=== PATIENT | female | born 1980 | race Caucasian/White ===

== ENCOUNTER 2017-06-08 11:58 | Observation (INO) | payer SELFPAY ==
[~2017-06-08] VITALS: Ht 160 cm; Wt 65.2 kg
--- NOTE | 2017-06-08 12:12 | NUR ---
PT TO ROOM FOR TREATMENT IN STABLE CONDITION
--- NOTE | 2017-06-08 12:43 | NUR ---
PT STATES SHE RAN OUT OF [employer] LAST WEEK. STATES SHES FROM [place] BUT CAME DOWN HERE WITH HER BOYFRIEND WHO HAD TO WORK IN [place]. PT ALSO STATES SHE HAS BEEN DRINKING 1/2 GALLON OF RUM EVERYDAY x10 YEARS BUT STOPPED DRINKING 2 DAYS AGO BC SHE DOESNT HAVE THE MONEY ANYMORE. PT C/O SEEING & HEARING THINGS THAT ARENT THERE. PT STATES SHE HAS HAD 2 SEIZURES IN HER SLEEP. DENIES PAIN, DENIES SOB. CARDIAC & RESP WNL. IV ESTABLISHED. LABS & UA COLLECTED. @ BEDSIDE.
[2017-06-08 13:07] LABS: HEMATOCRIT 46.5 % (37.0-47.0); HEMOGLOBIN 16.5 g/dl (12.0-16.0); IMMATURE GRANULOCYTES 0.3 % (0.0-1.0); MEAN CELL VOLUME 93.4 fL CALC (80.0-100.0); MEAN CORPUSCULAR HGB 33.1 pG CALC (26.0-32.0); MEAN CORPUSCULAR HGB CONC 35.5 g/L CALC (32.0-36.0); NEUT# 3.71 thou/uL (2.00-7.15); RED BLOOD COUNT 4.98 mill/uL (4.20-5.60); RED CELL DISTRI WIDTH 13.6 % (11.5-15.5)
[2017-06-08 13:19] LABS: URINE BLOOD DIPSTICK NEGATIVE (NEGATIVE); URINE GLUCOSE - DIPSTICK NEGATIVE (NEGATIVE); URINE KETONE 15 mg/dL (NEGATIVE); URINE LEUK ESTERASE NEGATIVE (NEGATIVE); URINE NITRITE - DIPSTICK NEGATIVE (Negative); URINE PH 5.5 (4.5-8.0); URINE PROTEIN - DIPSTICK 100 mg/dL (NEG-TRACE); URINE SPECIFIC GRAVITY >=1.030
[2017-06-08 13:20] LABS: ALBUMIN 5.3 g/dL (3.2-5.0); ALKALINE PHOSPHATASE 76 u/l (38-126); BILIRUBIN, TOTAL 1.5 mg/dL (0.0-1.4); BUN 18 mg/dL (7-17); BUN/CREATININE RATIO 28 (12-20 (CALC)); CALCIUM 10.8 mg/dL (8.4-10.2); CARBON DIOXIDE 31 mmol/l (22-30); CHLORIDE 93 mmol/l (95-108); CREATININE 0.6 mg/dL (0.5-1.0); GFR > 60 ML/MIN (>=60 (CALC)); GFR FOR AFR.AMER. > 60 ML/MIN (>=60 (CALC)); GLUCOSE 144 mg/dL (65-105); SGOT/AST 74 u/l (14-36); SGPT/ALT 59 u/l (9-52); SODIUM 141 mmol/l (137-146); TOTAL PROTEIN 9.3 g/dL (6.3-8.2)
[2017-06-08 13:22] LABS: ANION GAP 19 (6-22 (CALC)); POTASSIUM 2.2 mmol/l (3.5-5.1)
[2017-06-08 13:25] LABS: URINE BILIRUBIN - DIPSTICK MODERATE (NEGATIVE)
--- NOTE | 2017-06-08 13:25 | NUR ---
PT STABLE IN ER ROOM. NO HALLUCINATIONS OR SEIZURES SINCE ARRRIVAL. SIMONINED @ BEDSIDE. PT STATES DIFFERENT STATES THAT SHE CAME FROM BEFORE [place]- NOT CONSISTENT WITH INFORMATION.
[2017-06-08 13:26] LABS: URINE CLARITY SLIGHT CLOUDY; URINE COLOR DK. YELLOW
[2017-06-08 13:28] LABS: URINE EPITHELIAL CELLS MODERATE EPI/hpf (0-FEW); URINE MUCUS MODERATE hpf (NONE-FEW)
[2017-06-08 13:50] LABS: BARBITURATES NEGATIVE (NEGATIVE); COCAINE NEGATIVE (NEGATIVE); METHADONE NEGATIVE (NEGATIVE); OXCYCODONE NEGATIVE (NEGATIVE); TETRAHYDROCANNABIONOL POSITIVE (NEGATIVE); TRICYLIC ANTIDEPRESSANTS POSITIVE (NEGATIVE)
--- NOTE | 2017-06-08 14:21 | NUR ---
ADDITIONAL IV STARTED FOR POTASSIUM. PT STABLE. NO S/S DISTRESS. NO NEEDS AT THIS TIME.
--- NOTE | 2017-06-08 15:12 | NUR ---
ADMITTING MD @ BEDSIDE
--- NOTE | 2017-06-08 16:01 | NUR ---
Admission Note Report Given to: TONYA Transported by: X Wheelchair Stretcher Transported with: X Nurse Transporter X Patent IV O2 X Associate Director Of Development RN HAVING A ROOM CLOSER TO RN STATION CLEANED. WILL CALL BACK WHEN ROOM IS READY
--- NOTE | 2017-06-08 16:42 | NUR ---
PT ARRIVED TO FLOOR VIA WHEELCHAIR ACCOMPANIED BY ED STAFF X 1. PT DENIES PAIN. NO N/V. REPORTING OF CONCERNS ENCOURAGED. PLAN OF CARE DISCUSSED. PT ORIENTED TO ROOM AND EQUIPMENT. PT DENIES HALLUCINATIONS AT THIS TIME. CALL LIGHT REVIEWED AND IN REACH. PT STATES UNDERSTANDING.
[2017-06-08 16:45] VITALS: BP 131/80
--- NOTE | 2017-06-08 16:52 | NUR ---
TAKEN TO [facility] VIA WC. NO INCIDENTS.
[2017-06-08] MEDS ORDERED: XANAX1 MG PO (17:03)
[2017-06-08] MEDS ORDERED: MULTIVITAMI9 PO (17:03)
[2017-06-08 19:00] VITALS: BP 115/79
--- NOTE | 2017-06-08 21:00 | NUR ---
PT RESTING IN SEMI FOWLERS POSITION WITH SPOUSE AT BEDSIDE;PT COMPLAINS OF HEADACHE PAIN RATING 8/10 ON THE PAIN SCALE AND REQUESTS PRN TYLENOL; TO BE NOTIFED OF REQUEST;ASSESSMENT COMPLETED;#18G TO LAC INFUSING LR @ 100ML/HR WELL;TELE MONITOR IN PLACE;PT DENIES ANY OTHER NEEDS AT THIS TIME;SAFETY PRECAUTIONS REINFORCED;BED IN LOWEST POSITION WITH CALL LIGHT IN REACH;WILL CONTINUE TO MONITOR
--- NOTE | 2017-06-08 21:05 | NUR ---
NOTIFIED OF PTS REQUEST FOR PRN PAIN MEDICATION;NEW ORDERS RECEIVED
--- NOTE | 2017-06-08 22:40 | NUR ---
PT MEDICATED WITH PRN TYLENOL AT THIS TIME FOR HEADACHE PAIN RATING 8/10 ON THE PAIN SCALE;WILL CONTINUE TO MONITOR
[2017-06-09 00:35] VITALS: BP 124/84
--- NOTE | 2017-06-09 01:00 | NUR ---
PT RESTING IN SEMI FOWLERS POSITION WITH SPOUSE AT BEDSIDE;PT DENIES ANY PAIN OR DISCOMFORTS;RESPIRATIONS EVEN AND UNLABORED ON RA;IV FLUIDS INFUSING WELL TO LAC;PT DENIES ANY NEEDS AND EDUCATED TO CALL FOR ASSISTANCE IF NEEDED;CALL LIGHT IN REACH;WILL CONTINUE TO MONITOR
[2017-06-09 04:00] VITALS: BP 120/76
--- NOTE | 2017-06-09 04:40 | NUR ---
PT RESTING IN SUPINE POSITION WITH SPOUSE AT BEDSIDE;IV FLUIDS INFUSING WELL TO LAC;PT STATES "I HAVENT SLEPT AT ALL,THAT XANAX IS HALF OF WHAT I TAKE AT HOME";PT DENIES ANY OTHER NEEDS AT THIS TIME;CALL LIGHT WITHIN REACH;WILL CONTINUE TO MONITOR
[2017-06-09 06:01] LABS: HEMATOCRIT 39.1 % (37.0-47.0); HEMOGLOBIN 13.4 g/dl (12.0-16.0); MEAN CORPUSCULAR HGB 33.3 pG CALC (26.0-32.0); MEAN CORPUSCULAR HGB CONC 34.3 g/L CALC (32.0-36.0); RED BLOOD COUNT 4.03 mill/uL (4.20-5.60); RED CELL DISTRI WIDTH 13.7 % (11.5-15.5)
[2017-06-09 06:25] LABS: ANION GAP 14 (6-22 (CALC)); BUN 10 mg/dL (7-17); BUN/CREATININE RATIO 19 (12-20 (CALC)); CALCIUM 9.4 mg/dL (8.4-10.2); CARBON DIOXIDE 29 mmol/l (22-30); CHLORIDE 101 mmol/l (95-108); CREATININE 0.5 mg/dL (0.5-1.0); GFR > 60 ML/MIN (>=60 (CALC)); GFR FOR AFR.AMER. > 60 ML/MIN (>=60 (CALC)); GLUCOSE 103 mg/dL (65-105); MAGNESIUM 1.7 mg/dL (1.6-2.3); SODIUM 141 mmol/l (137-146)
[2017-06-09 07:51] VITALS: BP 149/94
--- NOTE | 2017-06-09 07:51 | NUR ---
REPORT RECEIVED FROM EZE JACKSON. PT DENIES HALLUCINATIONS. PT'S SIGNIFICANT OTHER STATES " YOU NEED TO GIVE HER SOMETHING TO SLEEP. SHE DIDNT SLEEP ALL NIGHT." PT ENCOURAGED TO RESUME NORMAL SLEEPING PATTERNS AND SEDATIVES DURING DAY TIME NOT ADVISED. PT STATES " I SLEPT ALL NIGHT." PLAN OF CARE DISCUSSED. CALL LIGHT REVIEWED AND IN REACH. PT STATES UNDERSTANDING.
[2017-06-09 11:34] VITALS: BP 120/67
[2017-06-09] MEDS ORDERED: ATIVAN0.5 MG PO (11:58)
[2017-06-09] MEDS ORDERED: KLOR-CON M2020 MEQ PO (11:58)
[2017-06-09] MEDS ORDERED: THIAMINE HCL100 MG PO (11:58)
[2017-06-09] MEDS ORDERED: MULTIVITAMI9 PO (11:58)
--- NOTE | 2017-06-09 13:14 | NUR ---
Discharge instructions given. Patient verbalizes understanding of same. Discharged in stable condition via Ambulatory to Home with *Other. All belongings sent with pt.
== END 2017-06-09 13:16 | disposition home or self-care (01) | DRG 897 ==
LOC: ED 11:58 → ED-I 14:50 → MS2 15:11 → ED 15:11 → MS2 06-09 13:16
PROVIDERS: Family Medicine; ADMIT Internal Medicine; ATTEND Internal Medicine
DX: F10.239 Alcohol dependence with withdrawal, unspecified (principal); F10.251 Alcohol dependence with alcohol-induced psychotic disorder with hallucinations; E46 Unspecified protein-calorie malnutrition; K70.10 Alcoholic hepatitis without ascites; E83.42 Hypomagnesemia; E87.6 Hypokalemia; F12.90 Cannabis use, unspecified, uncomplicated; F13.239 Sedative, hypnotic or anxiolytic dependence with withdrawal, unspecified; F41.9 Anxiety disorder, unspecified; I10 Essential (primary) hypertension; F17.210 Nicotine dependence, cigarettes, uncomplicated; Z68.25 Body mass index [BMI] 25.0-25.9, adult
CPT/HCPCS: G0378